=== PATIENT | female | born 1955 | race Caucasian/White ===

== ENCOUNTER → 2017-08-01 | Outpatient (CLI) | payer BC ==
[~2017-08-01] MED LIST: APAP500 PO; AZITHROMYCIN 2250 MG PO; BACTRIM DS TAB1 EACH PO; CIPROFLOXACIN250 M2 PO; DICLOFENAC SODI75 MG PO; ENDOMETRIN100 MG VAG; ESTRACE1 MG PO; FLAGYL500 MG PO; FLONASE 0.05%50 MCG NASAL; GARAMYCIN5 ML OP; IBUPROFEN; LEVAQUIN 500 M500 M2 PO; LEVOTHYROXIN0.137 M1 PO; MEDROLDOSEPACK PO; MOBIC7.5 MG PO; MUCINEX TA600 MG/TA2 PO; NORCO 5-325 TA1 EACH PO; NUCYNTA50 MG PO; PROCHLORPERAZINE5 M1 PO; SYNTHROID125 MCG PO; SYNTHROID150 MCG PO; VENTOLIN HFA 1818 GM INH; VICODIN 5-5001 EACH PO; WELLBUTRIN XL300 M1 PO; WELLBUTRIN XL300 MG PO; ZANAFLEX2 M1 PO; ZOFRAN ODT4 MG PO; ZYRTEC 10 MG TA10 MG PO; synthroid PO
--- NOTE | 2017-08-06 07:21 | PAINCON ---
[facility] [address] [place] [address] PAIN MANAGEMENT CONSULTATION Name: AARON JUNIOR DIEGO Room: [facility] Glenna#: [id number] Admission: 08/01/17 Attend Phys: Yoli Riley Discharge: Date of : 59 Report #: [id number] THIS REPORT FOR: //name// CC: Mellisa Denney DATE OF SERVICE: 08/01/2017 The patient is a 62-year-old female, prior seen in the pain clinic 06/13/2017, given epidural injection at that time. Returns to pain clinic today noting 50% improvement in her baseline pain, but still has pain in the right lateral leg. Still is modifying activities of daily living secondary to pain. She did discontinue diclofenac due to some gastroesophageal reflux. PHYSICAL EXAMINATION: Does show slight decreased left hip flexion strength. Modestly positive straight leg raise on the right. Vital signs otherwise stable. ASSESSMENT: Symptomatic lumbar radiculopathy by clinical exam and history, incremental improvement following 1 epidural injection. RECOMMENDATION: Repeat epidural injection under fluoroscopy today. Follow up simply as needed. PROCEDURE: Lumbar epidural injection with fluoroscopy. PROCEDURE NOTE: After both written and informed consent to include risk of spinal cord damage, increased pain, weakness and dural puncture, the patient was taken to the fluoroscopy suite, placed in the prone position. After sterile prep and drape, a skin wheal with lidocaine was raised. A 22-gauge epidural Tuohy needle was inserted in the midline at L3-L4 with good loss to resistance. Negative aspiration for cerebrospinal fluid or blood was noted. Then 1 mL of Omnipaque under biplanar fluoroscopy showed good spread within the epidural space. This was followed with 80 mg of triamcinolone plus 1 mL of 1.5% preservative-free Xylocaine, 0.5 mL Xylocaine was then injected to flush the needle; it was removed. The patient was monitored for an appropriate period of time and discharged in good and stable condition. <ELECTRONICALLY SIGNED> By: Shiraz Denney DO 08/06/17 0721 1354 [id number] Denney DO /nt
== END | disposition home or self-care (01) ==
LOC: M.PC 02:49
DX: M54.16 Radiculopathy, lumbar region (principal); Z98.890 Other specified postprocedural states

== ENCOUNTER → 2017-09-05 | Outpatient (CLI) | payer BC ==
--- NOTE | 2017-09-06 09:41 | PAINCON ---
[address] [address] PAIN MANAGEMENT CONSULTATION Name: AARON JUNIOR DIEGO [id number] Admission: 09/05/17 Attend Phys: Yoli Riley Discharge: Date of : 59 Report #: [id number] THIS REPORT FOR: //name// CC: Mellisa Denney The patient is a 62-year-old female, prior seen in pain clinic on 08/01/2017. We have done 2 epidural injections, 06/13/2017 and 08/01/2017. Last injection was at L3-L4. The patient still has ongoing paresthesia in the right lateral lower leg (lateral calf). Pain is present if she stands for greater than 2 or 3 minutes. She denies any specific weakness. Rates her pain at 0 at present, but standing, pain becomes quite problematic. PHYSICAL EXAMINATION: Relatively unchanged. 5 feet 5 inches, 185 pounds female, BMI is 30 kilograms per meter squared. Blood pressure 132/66, pulse 82, respirations 16. Rises from chair easily. Gait is tandem. Lower extremity strength is preserved. Modest diffuse tenderness across the low back. No discrete trigger points noted. Lower extremity strength again is symmetric. Dorsiflexion, plantar flexion, lower extremity extension, flexion and hip flexion are all symmetric. Piriformis resistance test is negative. Passive rotation of the hip is unremarkable. Breonna test is negative. A 2-point discrimination in this area is generally symmetric. ASSESSMENT: Neuropathic pain, right lateral lower leg. Etiology is somewhat obscure. No change with epidural injections. Reviewed her MRI from 06/05/2017. L3-L4 does note very small left disk protrusion, again this is contralateral to the right lower extremity pain. L4-L5 with hypertrophic facet changes with neural foraminal narrowing. There is a small central disk at L5-S1. Really none of these radiographic findings correlate with the symptoms. She does have a small right disk protrusion at L1-L2 as well as extension into the neural foramen. I am hard-pressed to think that this L1 nerve root irritation would cause discrete right lateral lower extremity pain. RECOMMENDATIONS: We will request EMG of the right lower extremity. Hopefully, this will help elucidate the etiology of the pain and point us towards little better treatment options. If this remains unremarkable, we may trial a short course of a membrane stabilizing agent (gabapentin?). Follow up after the EMG. <ELECTRONICALLY SIGNED> By: Shiraz Denney DO 09/06/17 0941 1418 10Shiraz Denney DO /nt
== END ==
LOC: M.PC 01:48
DX: M79.2 Neuralgia and neuritis, unspecified (principal)

== ENCOUNTER → 2017-09-19 | Outpatient (CLI) | payer BC | LOC: M.RAD 12:54 | DX: G89.29 Other chronic pain (principal); M79.661 Pain in right lower leg; M25.561 Pain in right knee; M25.551 Pain in right hip; M25.571 Pain in right ankle and joints of right foot ==

== ENCOUNTER → 2017-11-14 | Outpatient (CLI) | payer BC | LOC: M.RAD 09:00 | DX: N91.2 Amenorrhea, unspecified (principal); Z78.0 Asymptomatic menopausal state ==

== ENCOUNTER 2017-12-30 21:24 | Emergency (ER) | payer BC ==
[~2017-12-30] VITALS: Ht 165.1 cm; Wt 81.7 kg
[~2017-12-30 21:24] MED LIST changes: -BACTRIM DS TAB1 EACH PO
[2017-12-30] MEDS ORDERED: BACTRIM DS TAB1 EACH PO (22:41)
[2017-12-30 22:45] VITALS: BP 132/67
== END 2017-12-30 22:52 | disposition home or self-care (01) ==
LOC: M.ERS 21:24
DX: L53.8 Other specified erythematous conditions (principal); T63.481A Toxic effect of venom of other arthropod, accidental (unintentional), initial encounter; Z88.5 Allergy status to narcotic agent; Z90.49 Acquired absence of other specified parts of digestive tract; Z90.710 Acquired absence of both cervix and uterus; Y92.89 Other specified places as the place of occurrence of the external cause

== ENCOUNTER 2018-10-18 08:02 | Inpatient (IN) | payer BC ==
[~2018-10-18] VITALS: Ht 165.1 cm; Wt 93.4 kg
[~2018-10-18 08:02] MED LIST changes: +BACTRIM DS TAB1 EACH PO
[2018-10-18 08:05] VITALS: BP 134/53
[2018-10-18] MEDS ORDERED: [UNRECOGNIZED DRUG - OTHER] PO (08:12)
[2018-10-18 08:43] LABS: ABSOLUTE EOSINOPHILS 0.1 thou/uL (0.0-0.7); ABSOLUTE LYMPHOCYTES 2.1 thou/uL (0.8-5.3); ABSOLUTE MONOCYTES 0.4 thou/uL (0.0-1.2); ABSOLUTE NEUTROPHILS 3.4 thou/uL (1.6-8.1); BASOPHILS 0.5 %; EOSINOPHILS 1.8 %; HEMATOCRIT 39.7 % (37.0-47.0); HEMOGLOBIN 13.2 gm/dL (12.0-15.0); LYMPHOCYTES 34.9 %; MCH 27.2 pg (26.0-34.0); MCHC 33.2 g/dL (28.0-37.0); MONOCYTES 6.9 %; MPV 7.5 fl. (7.2-11.1); NUCLEATED RBCS 0 /100WBC; PLATELET COUNT* 398 thou/uL (150-400); POLYS 55.9 %; RBC 4.84 mil/uL (4.20-5.00); RDW-CV 14.3 % (10.5-14.5); WBC 6.1 thou/uL (4.0-11.0)
[2018-10-18 09:08] LABS: ALBUMIN 3.6 g/dL (3.4-5.0); ALKALINE PHOSPHATASE 83 U/L (46-116); ANION GAP 12 mmol/L (7-16); BUN 12 mg/dL (7-18); CHLORIDE 103 mmol/L (98-107); CO2 24 mmol/L (21-32); GLUCOSE 126 mg/dL (70-99); LIPASE 133 U/L (73-393); NT-PRO BRAIN NAT PEPTIDE 26 pg/mL (<300); POTASSIUM 3.8 mmol/L (3.5-5.1); SGOT 19 U/L (15-37); SGPT 17 U/L (30-65); SODIUM 139 mmol/L (136-145); TOTAL BILIRUBIN 0.3 mg/dL (<0.1-1.0); TOTAL PROTEIN 7.2 g/dL (6.4-8.2); TROPONIN-I LEVEL <0.06 ng/mL (<0.06)
[2018-10-18 14:01] VITALS: BP 126/64
[2018-10-18 14:58] VITALS: BP 126/64
[2018-10-18 16:00] VITALS: BP 139/61
--- NOTE | 2018-10-18 17:38 | NUR ---
PT ADMITTED AROUND 1500 PT IS ALERT AND ORIENTED X 4 PT DENIES PAIN OR SOA ON RA, PT DENIES DIZZINESS OR NAUSEA CONSULTED NEUROLOGY WHO ORDERED FOR PT TO REMAIN SITTING UPRIGHT IN BED WILL NEED TO SLEEP THIS WAY AND DO NOT BEND FORWARD AT THE WAIST PHYSICAL THERAPY PERFORMED PROCEDURE EDUCATED PT ON THIS PT STATES UNDERSTANDING, PT IS MEDICAL SURGICAL STATUS, WILL CONTINUE TO MONITOR
[2018-10-18 20:00] VITALS: BP 128/64
[2018-10-19] VITALS: BP 97/49
--- NOTE | 2018-10-19 04:09 | NUR ---
ASSUMED PT CARE AT APPROX 1930. PT IS AWAKE AND ORIENTED X4. VSS ON ROOM AIR. PT DENIES PAIN/DISCOMFORT. NO NAUSEA REPORTED. PT STATES FEELING LESS DIZZY. PT REMINDED TO AVOID BENDING OVER AND TO REMAIN ON HIGH FOWLERS POSITION EVEN DURING SLEEP. PT VERBALISED UNDERSTANDING. PT WAS ABLE TO SLEEP THROUGH THE NIGHT. CALL LIGHT WITHIN REACH. HOURLY ROUNDING DONE FOR PT SAFETY.
[2018-10-19 05:15] LABS: HEMATOCRIT 34.2 % (37.0-47.0); HEMOGLOBIN 11.4 gm/dL (12.0-15.0); MCH 27.4 pg (26.0-34.0); MCHC 33.5 g/dL (28.0-37.0); MCV 81.9 fL (80.0-100.0); MPV 7.7 fl. (7.2-11.1); RBC 4.17 mil/uL (4.20-5.00); RDW-CV 14.4 % (10.5-14.5); WBC 6.1 thou/uL (4.0-11.0)
[2018-10-19] MEDS ORDERED: NATURE-THROID97.5 MG PO (05:47)
[2018-10-19 06:13] LABS: CALCIUM 7.9 mg/dL (8.5-10.1); CREATININE 0.9 mg/dL (0.6-1.3); MAGNESIUM 1.9 mg/dL (1.8-2.4); POTASSIUM 4.1 mmol/L (3.5-5.1)
[2018-10-19 08:00] VITALS: BP 138/54
[2018-10-19 12:00] VITALS: BP 130/43
--- NOTE | 2018-10-19 12:28 | EKG ---
[place] [address] ELECTROCARDIOGRAM REPORT Name: AARON JUNIOR Room: [address] ADM IN M.R.#: [id number] Admission: 10/18/18 Attend Phys: Amy Lopez MD Discharge: Date of : 59 Report #: [id number] THIS REPORT FOR: //name// [facility] ED Test Date: 2018-10-18 Test Time: 08:11:03 Pat Name: AARON JUNIOR Department: Room: [facility] Gender: F Anodic Treater: YG : 1955 Requested By: Manuel Saleh Order Number: [id number] MD: Tobias Frost Measurements Intervals [place] Rate: 65 P: 28 IA: 184 QRS: 23 QRSD: 102 T: 44 QT: 398 QTc: 414 Interpretive Statements Sinus rhythm No previous ECG available for comparison Electronically Signed On 10-19-2018 12:28:22 CDT by Tobias Frost [email or web address] <ELECTRONICALLY SIGNED> By: Tobias Frost MD, [facility] 10/19/18 1228 0811 0 Tobias Frost MD, FACC /EPI
--- NOTE | 2018-10-19 18:21 | NUR ---
I ASSUMED CARE OF THE PATIENT AT 0700. SHE IS ALERT AND ORIENTED X4 AND IS UP AD LORENZO. SHE SHOWERED ALONE. BED IS IN THE LOW LOCKED POSITION AND CALL LIGHT IS IN REACH. HOURLY ROUNDING IS COMPLETED AND PATIENT NEEDS ARE MET. NEURO SAW THE PATIENT AND FEELS LIKE HER DIAGNOSIS WAS MISSED. SHE SHOULD DISCHARGE ON SUNDAY. FAMILY IS AT THE BEDSIDE OFF AND ON ALL DAY. WILL CONTINUE TO MONITOR.
[2018-10-19 20:00] VITALS: BP 123/62
[2018-10-20 04:00] VITALS: BP 137/85
--- NOTE | 2018-10-20 04:01 | NUR ---
ASSUMED PT CARE AT APPROX 1930. PT IS AWAKE AND ORIENTED X4. VSS ON ROOM AIR. WITH C/O THROAT PAIN RELIEVED BY TYLENOL GIVEN PER AUG. PT WAS ABLE TO SLEEP THROUGH THE NIGHT. CALL LIGHT WITHIN REACH. HOURLY ROUNDING DONE FOR PT SAFETY.
--- NOTE | 2018-10-20 09:23 | CON ---
[address] [address] CONSULTATION Name: AARON JUNIOR DIEGO Room: [address] IN .R.#: [id number] Admission: 10/18/18 Attend Phys: Amy Lopez MD Discharge: Date of : 59 Report #: [id number] THIS REPORT FOR: //name// CC: Amy Gatica HISTORY OF PRESENT ILLNESS: The patient is a 63-year-old female who presented yesterday with vertigo. She was so dizzy, she had to crawl on the floor. She came to the Emergency Room and while she was in the Emergency Room, a CT scan of the head was done and this was negative. The patient had an Joe maneuver, but there was no nystagmus; however, today the patient does feel better. She is dizzy when she looks up. Otherwise, she is doing quite well. In fact, when I walked in the room, she was sitting in bed, looking at her phone. The patient relates a similar episode approximately 12 years ago where she became dizzy. She was eventually diagnosed with fluid in the inner ear by Dr. Soares. PAST MEDICAL HISTORY: Depression/anxiety, environmental allergies, hypothyroidism. PAST SURGICAL HISTORY: Cholecystectomy, hysterectomy, tonsillectomy. MEDICATIONS: At home, bupropion XL 300 mg daily, cetirizine 10 mg b.i.d., levothyroxine 25 mcg daily. ALLERGIES: CODEINE. VITAL SIGNS: Temperature 36.6, pulse rate 63, respiratory rate 16, blood pressure 138/54, bedside pulse oximetry 98% on room air. LABORATORY DATA: Hematology: White blood cell count 6.1, hemoglobin 11.4, hematocrit 34.2, MCV 81.9, platelet count 301,000. Chemistry: Sodium 142, potassium 4.1, chloride 108, carbon dioxide 24, BUN 9, creatinine 0.9, glucose 81. Liver functions normal. NEUROLOGIC: Cranial nerves 2-12 are grossly intact. Motor exam demonstrates symmetrical strength in all 4 extremities with tone and bulk normal. Plantar responses are flexor. There was no evidence of dysmetria. Gait was not tested. IMPRESSION AND PLAN: This patient has had an episode of vertigo. This is most likely secondary to inner ear dysfunction. The patient is better and should continue to improve. However, should the vertigo return, I would recommend either that the patient go back and see Dr. Soares whom she sought 12 years ago or be referred for vestibular testing [place] [address] CONSULTATION Name: AARON JUNIOR Room: [address] IN [facility]#: [id number] Admission: 10/18/18 Attend Phys: Amy Lopez MD Discharge: Date of : 59 Report #: [id number] [facility] in [place] or [facility] in [place], [place]. Other than that, she may continue the scopolamine patch and may take Antivert p.r.n. However, when the patient is discharged, I would only send her home with a few of the scopolamine patch and not with meclizine because this may cause too much vestibular suppression and interfere with any remaining vestibular function that she has. I thank you for your kind referral of the patient. <ELECTRONICALLY SIGNED> By: Geneva Stock DO 10/20/18 0923 1208 0421Rtello Stock DO /nt
--- NOTE | 2018-10-20 10:46 | NUR ---
ASSUMED CARE OF PATIENT THIS AM AT 0730. PATIENT IS ALERT AND ORIENTED X 4. SHE C/O A SORE THROAT. SHE DENIES DIZZINESS TODAY. PLANS TO DISCHARGE TODAY. NO FALLS OR INJURY.
[2018-10-20] MEDS ORDERED: TRANSDERM-SCOP1 EACH MISCELL (11:03)
[2018-10-20] MEDS ORDERED: AUGMENTIN 875-1 EACH PO (11:05)
[2018-10-20] MEDS ORDERED: MEDROLDOSEPACK PO (11:07)
[2018-10-20] MEDS ORDERED: ANTIVERT25 MG PO (11:11)
[2018-10-20] MEDS ORDERED: ONDANSETRON HCL4 M2 PO (11:14)
[2018-10-20 11:42] VITALS: BP 137/85
== END 2018-10-20 12:00 | disposition home or self-care (01) | DRG 149 ==
LOC: M.ERS 08:02 → M.TBA-ER 10:02 → M.2W 15:15
PROVIDERS: Emergency Medicine; ADMIT Internal Medicine
DX: H81.10 Benign paroxysmal vertigo, unspecified ear (principal); F32.9 Major depressive disorder, single episode, unspecified; F41.9 Anxiety disorder, unspecified; E03.9 Hypothyroidism, unspecified; J30.9 Allergic rhinitis, unspecified; F39 Unspecified mood [affective] disorder; J32.8 Other chronic sinusitis; Z90.49 Acquired absence of other specified parts of digestive tract; Z90.710 Acquired absence of both cervix and uterus; Z09 Encounter for follow-up examination after completed treatment for conditions other than malignant neoplasm; Z88.6 Allergy status to analgesic agent; Z79.899 Other long term (current) drug therapy

== ENCOUNTER → 2019-12-01 | Outpatient (CLI) | payer BC, OTHER ==
[~2019-12-01] MED LIST changes: +ANTIVERT25 MG PO; +AUGMENTIN 875-1 EACH PO; +NATURE-THROID97.5 MG PO; +ONDANSETRON HCL4 M2 PO; +TRANSDERM-SCOP1 EACH MISCELL; +[UNRECOGNIZED DRUG - OTHER] PO
== END ==
LOC: M.RAD 12:48
DX: M85.88 Other specified disorders of bone density and structure, other site (principal)

== ENCOUNTER → 2020-12-13 | Outpatient (CLI) | payer OTHER | LOC: M.CT 11-24 09:00 | DX: Z13.6 Encounter for screening for cardiovascular disorders (principal); E78.5 Hyperlipidemia, unspecified ==

== ENCOUNTER 2021-01-13 12:30 | Inpatient (IN) | payer BC, OTHER ==
[~2021-01-13] VITALS: Ht 165.1 cm; Wt 88.5 kg
--- NOTE | ~2021-01-13 | CON ---
[address] [address] CONSULTATION Name: AARON JUNIOR Room: [address] IN M.R.#: [id number] Admission: 01/13/21 Attend Phys: Yoli Valencia Discharge: Date of : 59 Report #: [id number] THIS REPORT FOR: cc: Neeraj Gatica Steve T. DO Namin, Farid M. MD ~ cc: Neeraj Gatica DO DATE OF CONSULTATION: 01/14/2021 Please note at the time of this dictation, the patient was seen and physically examined by myself. REASON FOR CONSULTATION: Abdominal pain, abnormal CT. HISTORY OF PRESENT ILLNESS: This is a 65-year-old female who presented to the Emergency Room with worsening of this epigastric discomfort. She states, the day before admission, she started having abdominal discomfort that started in the epigastric and wrapped around from the front into her back. She said it felt like a band-like and she felt very bloated. She did have some nausea and some dry heaves with all of this. She states she has not been able to eat or drink anything for that time. She thought maybe she was constipated since she had not been eaten very much, so she gave herself an enema with very minimal results. She denied any fever or chills. She did state, several weeks ago, she was having severe sinus infection. She was placed on doxycycline by her PCP and during that time, when she had a bad headache, she was taking anywhere from 4-8 ibuprofen around the clock, alternating with Tylenol due to the severity of her headache, which she had continued up until she was admitted here to the hospital. At the end of her doxycycline course, her symptoms were still present. She did get switched to amoxicillin 2 days prior to her coming in and was not having significant relief from that. She was also noticing that she was taking some Tums to see if that would help with her pain, but it did not help with any significance at this time. However, the patient is a lam. She recently went and saw an ENT, not very long ago, and they took a look at her vocal cords and said it looked like she had some silent reflux. Given that she was dealing with a sinus infection, she did not start taking any medications for that at that time. ALLERGIES: CODEINE. MEDICATIONS: From home include Zyrtec, Synthroid, Wellbutrin, and Augmentin. PAST MEDICAL HISTORY: Recent sinus infection, being treated. The patient had a colonoscopy done at age 52 [address] Brown that was completely negative. She recently had a Cologuard done with her PCP that was negative as well, [place] [address] CONSULTATION Name: AARON JUNIOR Room: [address] IN .R#: [id number] Admission: 01/13/21 Attend Phys: Yoli Valencia Discharge: Date of : 59 Report #: [id number] hypothyroidism. PAST SURGICAL HISTORY: Cholecystectomy, hysterectomy, tonsillectomy. FAMILY HISTORY: Negative for any GI or female cancer. SOCIAL HISTORY: Denies any tobacco use or any illegal drug use, alcohol use socially. REVIEW OF SYSTEMS: Twelve-point review of systems is essentially negative, except what is mentioned in the HPI. PHYSICAL EXAMINATION: VITAL SIGNS: Temperature 36, pulse 77, respirations 18, blood pressure 125/45. HEART: Regular rate and rhythm. LUNGS: Clear. ABDOMEN: Soft, positive bowel sounds in all four quadrants with tenderness noted in the epigastric and right upper quadrant area. LABORATORY DATA: Hemoglobin is 12.2, white count on admission was 13.5, she is down to 8.3, and platelets are 310. GFR 72. Lipase on admission is 7171 and today's is pending. LFTs: Total bilirubin 0.3, alkaline phosphatase 56, ALT 17, AST of 13. IMAGING: CT showed breast augmentation, lap band, some hepatic cyst, and duodenal wall thickening in the second and third portion was noted. Her pancreas was completely normal. IMPRESSION: 1. Abdominal pain, upper. 2. Nausea and vomiting, improved. 3. Abnormal CT. 4. Elevated lipase. 5. Recent nonsteroidal anti-inflammatory drug use. 6. Recent antibiotics, doxycycline and Augmentin, for her sinus infection, likely the cause of elevated lipase. PLAN: 1. EGD today with Dr. Lazo. 2. Recheck lipase, which is pending this a.m. 3. Further recommendations to be made after [place] [address] CONSULTATION Name: AARON JUNIOR Room: [address] IN M.R.#: [id number] Admission: 01/13/21 Attend Phys: Yoli Valencia Discharge: Date of : 59 Report #: [id number] Thank you for allowing us to participate in this patient's care. Please do not hesitate to call with any questions in regard with this consult. By: 0905 [id number] Lazo MD /nt
--- NOTE | ~2021-01-13 | PROC ---
[facility] [address] [place] [address] PROCEDURE REPORT Name: AARON JUNIOR Room: [address] IN M.R.#: [id number] Admission: 01/13/21 Attend Phys: Yoli Valencia Discharge: 01/15/21 Date of : 59 Report #: [id number] THIS REPORT FOR: cc: Neeraj Gatica Steve T. DO MARY,Medical Records Staff ~ For GI report, please see the Provation report in Perceptive 7 content. By: [id number] Records Staff MARY /JAMIE
[2021-01-13 12:41] VITALS: BP 184/79
[2021-01-13] MEDS ORDERED: SYNTHROID75 MC1 PO (12:43)
[2021-01-13 13:42] LABS: ABSOLUTE BASOPHILS 0.1 thou/uL (0.0-0.2); ABSOLUTE EOSINOPHILS 0.1 thou/uL (0.0-0.7); ABSOLUTE LYMPHOCYTES 2.8 thou/uL (0.8-5.3); ABSOLUTE MONOCYTES 0.7 thou/uL (0.0-1.2); ABSOLUTE NEUTROPHILS 9.7 thou/uL (1.6-8.1); BASOPHILS 0.5 %; HEMATOCRIT 41.3 % (37.0-47.0); HEMOGLOBIN 13.7 gm/dL (12.0-15.0); MCH 26.9 pg (26.0-34.0); MCHC 33.3 g/dL (28.0-37.0); MCV 80.8 fL (80.0-100.0); MONOCYTES 5.4 %; NUCLEATED RBCS 0 /100WBC; PLATELET COUNT* 418 thou/uL (150-400); POLYS 72.1 %; RBC 5.11 mil/uL (4.20-5.00); RDW-CV 14.9 % (10.5-14.5); WBC 13.5 thou/uL (4.0-11.0)
[2021-01-13 13:47] LABS: CALCIUM 8.6 mg/dL (8.5-10.1); CREATININE 0.9 mg/dL (0.6-1.3); POTASSIUM 3.9 mmol/L (3.5-5.1)
[2021-01-13 13:53] LABS: ALBUMIN 3.8 g/dL (3.4-5.0); TOTAL BILIRUBIN 0.2 mg/dL (<0.1-1.0); TOTAL PROTEIN 7.5 g/dL (6.4-8.2)
[2021-01-13 15:10] LABS: URINE BILIRUBIN NEGATIVE (Negative); URINE BLOOD TRACE (Negative); URINE CLARITY CLEAR; URINE COLOR YELLOW; URINE GLUCOSE-RANDOM NEGATIVE (Negative); URINE KETONES NEGATIVE (Negative); URINE LEUKOCYTES NEGATIVE (Negative); URINE NITRITE NEGATIVE (Negative); URINE PROTEIN NEGATIVE (Negative); URINE SPECIFIC GRAVITY <= 1.005 (1.005-1.030); URINE UROBILINOGEN 0.2 E.U./dl (0.2-1.0)
--- NOTE | 2021-01-13 16:33 | EKG ---
[place] [address] ELECTROCARDIOGRAM REPORT Name: AARON JUNIOR Room: [place] [address] ADM IN .R.#: [id number] Admission: 01/13/21 Attend Phys: Solis Jin Discharge: Date of : 59 Date of Service: 01/13/21 1440 Report #: [id number] THIS REPORT FOR: //name// [facility] ED Test Date: 2021-01-13 Test Time: 14:40:59 Pat Name: AARON JUNIOR Department: Room: [facility] Gender: F Canoe Inspector: BJ : 1955 Requested By: Diya Gardiner Order Number: [id number] MD: Dat Hawkins Measurements Intervals [place] Rate: 74 P: 34 MN: 165 QRS: 7 QRSD: 91 T: 34 QT: 377 QTc: 419 Interpretive Statements Sinus rhythm Compared to ECG 10/18/2018 08:11:03 No significant changes Electronically Signed On 01-13-2021 16:33:12 CDT by Dat Hawkins [email or web address] <ELECTRONICALLY SIGNED> By: Dat Hawkins MD, FACC 01/13/21 1633 1440 1440 Dat Hawkins MD, [facility] /EPI
[2021-01-13 20:33] VITALS: BP 125/45
[2021-01-14 03:52] LABS: ABSOLUTE EOSINOPHILS 0.2 thou/uL (0.0-0.7); ABSOLUTE LYMPHOCYTES 2.8 thou/uL (0.8-5.3); ABSOLUTE MONOCYTES 0.6 thou/uL (0.0-1.2); ABSOLUTE NEUTROPHILS 4.7 thou/uL (1.6-8.1); BASOPHILS 0.4 %; EOSINOPHILS 1.9 %; HEMATOCRIT 36.2 % (37.0-47.0); HEMOGLOBIN 12.2 gm/dL (12.0-15.0); LYMPHOCYTES 33.6 %; MCH 27.5 pg (26.0-34.0); MCHC 33.7 g/dL (28.0-37.0); MCV 81.6 fL (80.0-100.0); MONOCYTES 7.6 %; MPV 7.1 fl. (7.2-11.1); NUCLEATED RBCS 0 /100WBC; POLYS 56.5 %; RBC 4.44 mil/uL (4.20-5.00); RDW-CV 15.1 % (10.5-14.5); WBC 8.3 thou/uL (4.0-11.0)
[2021-01-14 03:53] LABS: PLATELET COUNT* 310 thou/uL (150-400)
[2021-01-14 04:08] LABS: ALBUMIN 2.9 g/dL (3.4-5.0); CALCIUM 7.6 mg/dL (8.5-10.1); CREATININE 0.8 mg/dL (0.6-1.3); MAGNESIUM 1.9 mg/dL (1.8-2.4); POTASSIUM 4.1 mmol/L (3.5-5.1); TOTAL BILIRUBIN 0.3 mg/dL (<0.1-1.0); TOTAL PROTEIN 5.9 g/dL (6.4-8.2)
--- NOTE | 2021-01-14 05:10 | NUR ---
PT HERE AT 2044 FROM ER. PAIN/NAUSEA WAS AN ISSUE. GOT ORDER FOR MORPHINE, SHE IS NOW SLEEPING WELL AND COMFORTABLE. SHE IS WORRIED ABOUT ABX/SINUS RELIEF MEDS BUT AGREED IT IS BEST TO WAIT TO SPEAK TO A DR ABOUT RESTARTING THOSE WHILE SHE IS HERE. SHE HAS BEEN NPO EXCEPT A FEW SIPS TO TAKE MEDS. SHE HAS RECEIVED FLUIDS ORDERED. SHE IS UP AD LORENZO, ROOM AIR, ALERT AND ORIENTED. SHE WAS ABLE TO GET SOME SLEEP ONCE HER PAIN WAS REDUCED.
[2021-01-14 07:30] VITALS: BP 147/70
--- NOTE | 2021-01-14 13:08 | NUR ---
CM S/W PT WHO INDICATED SHE LIVES HOME WITH HER SPOUSE. PT USES NO DMES. PT HAS NO HX WITH SNF OR HH. PT IS ACTIVE AND INDEPENDENT WITH LEON. GI CONSULT AND EGD TODAY. IT IS BELIEVED PT WILL BE HOSPITALIZED OVER THE WEEKEND. THERE ARE NO ANTICIPATED CM NEEDS.
[2021-01-14 16:58] VITALS: BP 127/60
--- NOTE | 2021-01-14 18:52 | NUR ---
PATIENT RESTING IN BED. PATIENT IS UP AD LORENZO IN ROOM. PATIENT HAD EGD THIS AFTERNOON WITHOUT INCIDENT. PATIENT NAUSEATED THIS AM, PHENERGAN GIVEN WITH NO FURTHER COMPLAINTS. PATIENT HAD COMPLAINTS OF HEADACHE AND MILD ABDOMINAL DISCOMFRT, TYLENOL GIVEN WITH RELIEF. PATIENT IS TOLERATING CLEAR LIQUIDS. PATIENT DENIES ANY NEEDS AT THIS TIME. CALL LIGHT WITHIN REACH.
[2021-01-14 20:10] VITALS: BP 142/64
--- NOTE | 2021-01-15 04:34 | NUR ---
PATIENT HAS REMAINED ALERT AND ORIENTED X 4 THROUGHOUT THE SHIFT AND RESTING QUIETLY ON HOURLY ROUNDS. UP INDEPENDENTLY TO BR. SHOWERED AT HS. HAS DENIED NAUSEA WITH CLEAR LIQUIDS TONIGHT. NO ADOMINAL PAIN. TYLENOL FOR CONRAD. VITAL SIGNS STABLE. MEDS/ANTIBIOTICS PER ORDER. CONTINUE TO MONITOR.
[2021-01-15 04:40] VITALS: BP 133/57
[2021-01-15 09:00] VITALS: BP 155/66
[2021-01-15] MEDS ORDERED: PROTONIX40 M2 PO (09:01)
[2021-01-15] MEDS ORDERED: FLAGYL500 M1 PO (09:02)
[2021-01-15] MEDS ORDERED: LEVOFLOXACIN500 MG PO (09:02)
[2021-01-15] MEDS ORDERED: FLORASTOR250 MG PO (09:10)
[2021-01-15 09:22] LABS: ABSOLUTE EOSINOPHILS 0.1 thou/uL (0.0-0.7); ABSOLUTE MONOCYTES 0.6 thou/uL (0.0-1.2); ABSOLUTE NEUTROPHILS 4.6 thou/uL (1.6-8.1); BASOPHILS 0.4 %; HEMATOCRIT 34.2 % (37.0-47.0); HEMOGLOBIN 11.6 gm/dL (12.0-15.0); LYMPHOCYTES 26.9 %; MCH 27.8 pg (26.0-34.0); MCHC 33.8 g/dL (28.0-37.0); MCV 82.2 fL (80.0-100.0); MPV 7.2 fl. (7.2-11.1); NUCLEATED RBCS 0 /100WBC; PLATELET COUNT* 315 thou/uL (150-400); POLYS 62.7 %; RBC 4.16 mil/uL (4.20-5.00); RDW-CV 14.6 % (10.5-14.5); WBC 7.3 thou/uL (4.0-11.0)
[2021-01-15 09:30] LABS: ALBUMIN 2.9 g/dL (3.4-5.0); CALCIUM 7.6 mg/dL (8.5-10.1); CREATININE 0.7 mg/dL (0.6-1.3); POTASSIUM 4.2 mmol/L (3.5-5.1); TOTAL BILIRUBIN 0.3 mg/dL (<0.1-1.0); TOTAL PROTEIN 5.5 g/dL (6.4-8.2)
[2021-01-15 13:59] VITALS: BP 155/66
--- NOTE | 2021-01-15 15:38 | NUR ---
PATIENT VERBALIZED UNDERSTANDING OF DISCHARGE INSTRUCTIONS. LEFT VIA W/C IN FAMILY CAR. DENIES PAIN AT DISCHARGE.
[2021-01-16] MEDS ORDERED: PREDNISONE50 MG PO (01:15)
== END 2021-01-15 14:30 | disposition home or self-care (01) | DRG 392 ==
LOC: M.ERS 12:30 → M.TBA-ER 15:29 → M.2W 15:29
PROVIDERS: Physician Assistant; ADMIT Internal Medicine; ATTEND Internal Medicine
PROC: 0DB68ZX Excision of Stomach, Via Natural or Artificial Opening Endoscopic, Diagnostic (ICD-10-PCS; principal; 2021-01-13)
DX: K29.70 Gastritis, unspecified, without bleeding (principal); E03.9 Hypothyroidism, unspecified; K29.80 Duodenitis without bleeding; D72.829 Elevated white blood cell count, unspecified; J01.90 Acute sinusitis, unspecified; K20.90 Esophagitis, unspecified without bleeding; K44.9 Diaphragmatic hernia without obstruction or gangrene; Z20.822 Contact with and (suspected) exposure to COVID-19; Z88.6 Allergy status to analgesic agent; Z90.710 Acquired absence of both cervix and uterus; Z90.49 Acquired absence of other specified parts of digestive tract; Z79.1 Long term (current) use of non-steroidal anti-inflammatories (NSAID)

== ENCOUNTER 2021-01-15 22:42 | Emergency (ER) | payer BC, OTHER ==
[~2021-01-15] VITALS: Ht 172.7 cm; Wt 88.0 kg
[~2021-01-15 22:42] MED LIST changes: +FLAGYL500 M1 PO; +FLORASTOR250 MG PO; +LEVOFLOXACIN500 MG PO; +PROTONIX40 M2 PO; +SYNTHROID75 MC1 PO
[2021-01-16] MEDS ORDERED: PREDNISONE50 MG PO (01:15)
[2021-01-16 01:31] VITALS: BP 150/68
== END 2021-01-16 01:33 | disposition home or self-care (01) ==
LOC: M.ERS 22:42
DX: R22.0 Localized swelling, mass and lump, head (principal); T78.40XA Allergy, unspecified, initial encounter; E03.9 Hypothyroidism, unspecified; Z88.5 Allergy status to narcotic agent; Z90.49 Acquired absence of other specified parts of digestive tract; Z90.89 Acquired absence of other organs; Z90.710 Acquired absence of both cervix and uterus; Y92.89 Other specified places as the place of occurrence of the external cause